=== PATIENT | male | born 1975 | race African-American/Black ===

== ENCOUNTER 2019-02-22 21:31 | Inpatient (IN) | payer OTHER ==
[~2019-02-22] VITALS: Ht 182.9 cm; Wt 118.4 kg
[~2019-02-22 21:31] MED LIST: ASPIRIN81 M2 PO; ATORVASTATIN CA40 MG PO; Aspirin 81 Mg Tablet Chew PO; BACTRIM DS TAB1 EACH PO; BENICAR40 MG PO; CARVEDILOL25 MG PO; COREG 3.125 MG PO; COREG6.25 MG PO; COUMADIN7.5 MG PO; COZAAR100 MG PO; CRESTOR20 MG PO; EFFIENT10 MG PO; ENOXAPARIN100 MG/1 M SUBQ; Effient PO; INSULIN DETEMIR SUBQ; JANUVIA100 MG PO; LEVEMIR FLEXPEN SUBQ; LEVEMIR SUBQ; LIPITOR40 MG PO; LISINOPRIL 2.5 MG PO; LISINOPRIL5 MG PO; METFORMIN HCL500 MG PO; NOHOMEMEDICATIONS; NORCO 5-325 TA1 EACH PO; NOVOLOG SUBQ; NOVOLOG100 UNIT/1 SQ; NOVOLOG100 UNIT/1 SUBQ; PEPTO-BISM262 MG/15 PO; TOBREX5 ML OPHTHALMIC; TRAMADOL 50 MG50 MG PO
[2019-02-23] VITALS (13 sets, daily range): BP systolic 135–157; BP diastolic 76–94
[2019-02-23 02:24] LABS: HEMATOCRIT 30.6 % (42.0-52.0); MCH 27.2 pg (26.0-34.0); MCHC 32.8 g/dL (28.0-37.0); MCV 82.8 fL (80.0-100.0); MPV 7.7 fl. (7.2-11.1); RBC 3.7 mil/uL (4.50-6.00); RDW-CV 16.5 % (10.5-14.5); WBC 8.9 thou/uL (4.0-11.0)
[2019-02-23 02:32] LABS: APTT 34.6 Seconds (25.0-31.3); INR 1.1; PROTIME 11.1 Seconds (9.20-11.50)
[2019-02-23 02:43] LABS: CHOLESTEROL 111 mg/dL (<200); HDL CHOLESTEROL 7 mg/dL (>40); LDL CHOLESTEROL 72 mg/dL (<100); TC:HDL 15.9 Ratio (Not establshd); TRIGLYCERIDE 161 mg/dL (<150); VLDL 32 mg/dL (<40)
[2019-02-23 02:45] LABS: ALBUMIN 2.6 g/dL (3.4-5.0); CALCIUM 9.7 mg/dL (8.5-10.1); CREATININE 1.5 mg/dL (0.6-1.3); POTASSIUM 4.3 mmol/L (3.5-5.1); TOTAL BILIRUBIN 0.8 mg/dL (<0.1-1.0); TOTAL PROTEIN 8.2 g/dL (6.4-8.2)
[2019-02-23 02:47] LABS: SERUM ASSESSMENT CLEAR
[2019-02-23] MEDS ORDERED: COREG6.25 MG PO (05:04)
[2019-02-23] MEDS ORDERED: BENICAR40 MG PO (05:20)
[2019-02-23 05:42] LABS: MAGNESIUM 2.1 mg/dL (1.8-2.4); TROPONIN-I LEVEL 0.12 ng/mL (<0.06)
--- NOTE | 2019-02-23 10:33 | EKG ---
[place] [address] ELECTROCARDIOGRAM REPORT Name: MORELIALUCERO Room: [address] ADM IN M.R.#: [id number] Admission: 02/22/19 Attend Phys: Masha Cuevas Discharge: Date of : 75 Report #: [id number] THIS REPORT FOR: //name// [facility] Test Date: 2019-02-23 Test Time: 08:08:17 Pat Name: LUCERO THIBODEAUX Department: Room: [address] Gender: M Layout Former: : 1975 Requested By: Masha Barba Order Number: [id number] Walter MD: Gato Kendrick Measurements Intervals Commerce Rate: 81 P: 31 PA: 198 QRS: 27 QRSD: 82 T: 51 QT: 360 QTc: 418 Interpretive Statements Sinus rhythm Anterior infarct, old No previous ECG available for comparison Electronically Signed On 02-23-2019 10:33:24 INVESTIGATIVE ANALYST by Gato Kendrick [email or web address] <ELECTRONICALLY SIGNED> By: Gato Kendrick MD, [facility] 02/23/19 1033 0808 [id number] Gato Kendrick MD, FACC /EPI
[2019-02-23 10:44] LABS: % SATURATION 12 % (20-39); IRON 26 ug/dL (50-175)
--- NOTE | 2019-02-23 16:21 | CON ---
[address] [address] CONSULTATION Name: LUCERO THIBODEAUX JR Room: [address] IN M.R.#: [id number] Admission: 02/22/19 Attend Phys: Masha Cuevas Discharge: Date of : 75 Report #: [id number] THIS REPORT FOR: //name// CC: Gato Kendrick FAM unknown Masha Barba DATE OF SERVICE: 02/23/2019 CARDIOLOGY CONSULTATION HISTORY OF PRESENT ILLNESS: The patient is a 43-year-old black male who was asked to see in the hospital today after he complained of being short of breath. The patient has an extensive past medical history. He had a previous myocardial infarction back in 2011 and had a bare metal stent placed to the LAD at [facility]. He had a repeat heart catheterization in 2013, at [facility] and had a stent placed in the diagonal artery. He has been followed by my partner, Dr. Isaak Arshad. The patient recently was having pain in his right biceps. He was actually admitted to [facility] as an outpatient on 02/13/2019, and had biceps surgery as an outpatient. Since his surgery, he has had edema and increased weight gain. He also complained of shortness of breath. He actually saw my nurse practitioner 2 days ago. He also complained of some chest pain. My nurse recommended he go to the Emergency Room. He was admitted to [facility] 2 days ago. Evaluation there included a troponin that was mildly elevated at 0.26. He underwent an echocardiogram that showed ejection fraction of 35% with apical hypokinesis. Because of the abnormal troponin, chest pain, shortness of breath and abnormal echocardiogram, it is recommended he undergo cardiac catheterization. The patient preferred to be transferred to [place] at this time, to be cared for by Dr. Jeancarlos murcia. PAST MEDICAL HISTORY: Otherwise significant for no surgical procedures. He has a history of hypertension and hyperlipidemia. MEDICATIONS: Include aspirin, carvedilol, Neurontin, insulin, losartan, Crestor, Janumet and Maxzide. ALLERGIES: HE HAD A PREVIOUS INTOLERANCE TO LISINOPRIL. FAMILY HISTORY: Positive for heart disease. SOCIAL HISTORY: He is . He and his live in [place]. He used to work at [employer] not working at this time. His works at [email or web address]. No smoking. No alcohol abuse. REVIEW OF SYSTEMS: No history of stroke, asthma, peptic ulcer disease, [place] [address] CONSULTATION Name: LUCERO THIBODEAUX Room: [address] IN [facility]#: [id number] Admission: 02/22/19 Attend Phys: Masha Cuevas Discharge: Date of : 75 Report #: [id number] disease. He has chronic kidney disease. No psychiatric illness. No chronic skin condition. PHYSICAL EXAMINATION: GENERAL: Revealed a young male, appeared in no distress. VITAL SIGNS: Blood pressure 130/80, pulse 80. He is afebrile. HEENT: He is anicteric. Conjunctivae pink. Mucous membranes moist. NECK: Veins nondistended. No carotid bruits. CHEST: Clear to auscultation. CARDIOVASCULAR: Regular rate and rhythm. ABDOMEN: Soft. EXTREMITIES: Had no edema. Dorsalis pedis pulse 1+ bilaterally. SKIN: Cool and dry. NEUROLOGICAL: Nonfocal. IMAGING: His workup at [facility] included venous duplex scan of the legs that showed no DVT. V/Q scan showed low probability for pulmonary embolus. His chest x-ray shows some atelectasis, otherwise unremarkable. LABORATORY WORK: Sodium 138, BUN 37, creatinine 1.7, it has been as high as 2.4 in the past. His albumin is 2.7. Troponin 0.23. Cholesterol 106, triglyceride 233, HDL 6, LDL 54. White blood cell count 8.2, hematocrit 31.2, MCV is 84, RDW 16. IMPRESSION AND RECOMMENDATIONS: 1. Coronary artery disease. Borderline troponin. Complained of chest pain. Recommend cardiac catheterization. 2. Cardiomyopathy. The patient has been on a beta lesvia and ARB. 3. Hyperlipidemia. The patient is on a statin drug. 4. Diabetes. 5. Recent repair of the biceps tendon. 6. Chronic renal insufficiency. <ELECTRONICALLY SIGNED> By: Gato Kendrick MD, [facility] 02/23/19 1621 0830 [id number] Kendrick MD, FACC /nt
--- NOTE | 2019-02-23 16:54 | CARD ---
[address] [address] CARDIAC CATH REPORT Name: LUCERO THIBODEAUX Room: [address] IN ..#: [id number] Admission: 02/22/19 Attend Phys: Masha ramos [place] Discharge: Date of : 75 Report #: [id number] THIS REPORT FOR: //name// APPROVED REPORT Study performed: 02/23/2019 10:25:30 Patient Details Patient Status: In-Patient Room #: The patient is a 43 year-old male Event Personnel Kiki Alex RN Sales Development Director, Jarrod Jara SPORTS BOOK BOARD ATTENDANT Monitor, Madeline Rodney RTR Aroldo Clark David Licensed Optical Dispenser Procedures Performed Left Heart Cath w/or w/o Coronaries [id number] [facility] Indication Dyspnea, Atypical chest pain , Cardiomyopathy Risk Factors Coronary Artery Disease Previous Procedures/Diagnoses Previous PCI Admission/Lab Medications/Medications given during procedure Heparin Unfract. Procedure Narrative The patient was brought electively to the Cardiac Catheterization Laboratory and was prepped and draped in a sterile manner. The right wrist was infiltrated with 1% Lidocaine subcutaneous anesthesia. A Slender Glidesheath sheath was inserted into the RRA. Coronary angiography was performed using coronary diagnostic catheters. The right coronary system was accessed and visualized with a JR4 catheter. The left coronary system was accessed and visualized with a JL3.5 catheter. The left ventricle was accessed and visualized with a PIG catheter. Left ventricular/Aortic Valve gradient assessed via catheter pullback. Closure device was deployed with a 6 Fr Va Band. The patient tolerated the procedure well and there were no complications associated with the procedure. [place] [address] CARDIAC CATH REPORT Name: LUCERO THIBODEAUX JR Room: [address] IN [facility]#: [id number] Admission: 02/22/19 Attend Phys: Masha ramos [place] Discharge: Date of : 75 Report #: [id number] Intraoperative Conscious Sedation Sedation start time: 1107 Case end Time: 1143 Fentanyl 25 mcg Fluoro Time: 10.0 minutes Dose: 1490 mGy Contrast Type and Amount: Visipaque 90 ml Coronary Angiography The patient's coronary anatomy is right dominant. Diagnostic Cath Left Main 0% stenosis LAD Stent in the mid lad had 0% restenosis Diagonal 1 Stent in the mid diagonal branch had 0% stenosi Circumflex 0% stenosis Right Coronary 0% stenosis Left Ventriculography Left Ventriculography was not performed. Hemodynamics The aortic pressure is 122/78 mmHg with a mean of 96 mmHg. The left ventricular pressure is 126/10 mmHg with a mean of mmHg. The left ventricular end diastolic pressure is 9 mmHg. There was no gradient across the aortic valve upon pullback. Pullback from the left ventricle to the aorta revealed no gradient across the aortic valve. Conclusion 1. no restenosis of stents in the lad and diagonal Recommendations Aggressive Medical Therapy <ELECTRONICALLY SIGNED> By: Gato Kendrick MD, [facility] 02/23/191652 52 [id number] Kendrick MD, FAC /INF
[2019-02-23] MEDS ORDERED: NITROGLYCERIN0.4 MG SUBLING (17:54)
[2019-02-24 02:06] LABS: GLYCOHEMOGLOBIN (HGB A1C) 6.8 % (4.8-5.6)
== END 2019-02-23 19:30 | disposition home health service (06) | DRG 287 ==
LOC: M.2W 21:31 → M.TBA-ER 23:59 → M.2W 02-23
PROVIDERS: ADMIT Family Medicine
PROC: B211YZZ Fluoroscopy of Multiple Coronary Arteries using Other Contrast (ICD-10-PCS; principal; 2019-02-23)
PROC: 4A023N7 Measurement of Cardiac Sampling and Pressure, Left Heart, Percutaneous Approach (ICD-10-PCS; principal; 2019-02-23)
DX: R07.89 Other chest pain (principal); E44.1 Mild protein-calorie malnutrition; I25.10 Atherosclerotic heart disease of native coronary artery without angina pectoris; E78.5 Hyperlipidemia, unspecified; E11.22 Type 2 diabetes mellitus with diabetic chronic kidney disease; I12.9 Hypertensive chronic kidney disease with stage 1 through stage 4 chronic kidney disease, or unspecified chronic kidney disease; N18.2 Chronic kidney disease, stage 2 (mild); I25.5 Ischemic cardiomyopathy; E66.01 Morbid (severe) obesity due to excess calories; Z95.5 Presence of coronary angioplasty implant and graft; Z68.35 Body mass index [BMI] 35.0-35.9, adult; Z79.82 Long term (current) use of aspirin; Z79.4 Long term (current) use of insulin; Z79.899 Other long term (current) drug therapy; Z82.49 Family history of ischemic heart disease and other diseases of the circulatory system; Z79.84 Long term (current) use of oral hypoglycemic drugs; I25.2 Old myocardial infarction; Z98.42 Cataract extraction status, left eye; Z98.41 Cataract extraction status, right eye